=== PATIENT | female | born 1970 | race Caucasian/White ===

== ENCOUNTER 2023-01-16 09:38 | Outpatient (CLI) | payer MEDICARE, MEDICAID, SELFPAY ==
--- NOTE | 2023-01-16 | EST_ITS ---
Patient Info Name: Mehnaz Santamaria Age: 53 years : 1970 Gender: Female Ht: 63 in Wt: 235 lbs BSA: 2.23 m2 HR: 64 bpm BP: 207 / 85 mmHg Heart Rhythm: Sinus Rhythm Exam Date: 01/16/2023 11:20 AM Exam Location: [facility] Stress Admit Date: 01/16/2023 Staff Attending Provider: BENJAMIN Referring Physician: LORIE King; Exercise Technologist: Loreta Combs RDCS Exercise Physician: Ketty Browning MD Exam Type: CA stress ronnie w NM Study Info Indications R07.9 - Chest pain, unspecified A regadenoson stress test was performed. Summary 1. Hypertensive during study with resting blood pressure at 207/85mmHg with peak blood pressure of 215/94mmHg. 2. Approximately 1mm horizontal ST depressions in the inferior leads and 0.5-1mm depressions in the lateral leads, consistent with ishcemia. 3. Please correlate with nuclear medicine images, reported separately. 4. Stress test supervised by and interpreted by Ketty Browning M.D. Protocol: Lexiscan Stress ECG Details Stage: REST Duration (min): 10 min : 21 sec HR (bpm): 63 SBP (mmHg): 207 DBP (mmHg): 85 Stage: REST Duration (min): 26 min : 57 sec HR (bpm): 79 SBP (mmHg): 215 DBP (mmHg): 94 Stage: STAGE 1 Duration (min): 1 min : 0 sec HR (bpm): 106 SBP (mmHg): 215 DBP (mmHg): 94 Stage: RECOVERY Duration (min): 1 min : 0 sec HR (bpm): 104 SBP (mmHg): 203 DBP (mmHg): 97 Stage: RECOVERY Duration (min): 2 min : 0 sec HR (bpm): 99 SBP (mmHg): 203 DBP (mmHg): 97 Stage: RECOVERY Duration (min): 3 min : 0 sec HR (bpm): 96 SBP (mmHg): 190 DBP (mmHg): 96 Stage: RECOVERY Duration (min): 4 min : 0 sec HR (bpm): 88 SBP (mmHg): 190 DBP (mmHg): 96 Stage: RECOVERY Duration (min): 5 min : 0 sec HR (bpm): 90 SBP (mmHg): 187 DBP (mmHg): 95 Stage: RECOVERY Duration (min): 5 min : 8 sec HR (bpm): 88 SBP (mmHg): 187 DBP (mmHg): 95 Rest HR: 79 bpm Peak HR: 109 bpm Rest Sys BP: 215 mmHg Peak Sys BP: 203 mmHg Max Pred HR: 167 bpm % Max Pred HR: 65 % Target HR: 142 bpm Max RPP: 22,127 bpm*mmHg Total Time: 1 min : 0 sec Rest Amos BP: 94 mmHg Peak Amos BP: 97 mmHg Total Dose: 0.4 mg Resting ECG Sinus rhythm. Stress ECG Sinus tachycardia. Approximately 1mm horizontal ST depressions in the inferior leads and 0.5-1mm depressions in the lateral leads, consistent with ishcemia. Arrhythmias None. Report Signatures
--- NOTE | ~2023-01-16 | NM_ITS ---
EXAMINATION: NM ronnie stress w perfusion DATE: 01/16/2023 12:57 INDICATION: Chest pain TECHNIQUE: Rest images were obtained following intravenous administration of 10.8 mCi Tc99m tetrofosm in (Myoview). The patient was infused intravenously with Lexiscan (Regadenoson). Then, 32.7 mCi Tc99m tetrofosmin (Myoview) was administered intravenously, and stress images were obtained in supine posi tion. No prone post stress imaging obtained.. Data was reconstructed into short axis and horizontal a nd vertical long axis SPECT images. Gated SPECT images were also obtained. COMPARISON: None. FINDINGS: There is a small mild perfusion defect along the apical inferior and mid inferior segments on both the stress and rest images. This identified to a greater degree on the post stress images by computer scoring but subjectively appears more prominent on the rest imaging. Review of the rotating source images demonstrate portions of the liver projecting over the inferior wall on many of the imag es primarily in the GAV[place] position which suggests the perfusion defects are more likely artifactual rat her than due to either infarct or ischemia. There is normal left ventricular chamber size, wall motio n and ejection fraction. Left ventricular ejection fraction measures >70%. IMPRESSION: 1. Small mild perfusion defect at the apical inferior and mid inferior segments which appears subject ively more prominent on the rest than the stress images and would favor attenuation artifact from the left hepatic lobe over either infarct or ischemia. 2. Left ventricular ejection fraction measuring >70%. Reviewed, dictated and finalized at location A. IMPRESSION: 1. Small mild perfusion defect at the apical inferior and mid inferior segments which appears subjectively more prominent on the rest than the stress images a nd would favor attenuation artifact from the left hepatic lobe over either infa rct or ischemia. 2. Left ventricular ejection fraction measuring >70%.
== END 2023-01-16 09:39 | disposition home or self-care (01) ==
PROVIDERS: PCP Internal Medicine Gastroenterology; Visit Provider Internal Medicine Cardiovascular Disease
DX: R07.89 Other chest pain (principal)
CPT/HCPCS: 78452; 93017; A9502; J2785